=== PATIENT | male | born 1970 | race African-American/Black ===

== ENCOUNTER 2017-12-21 16:20 | Inpatient (IN) | payer OTHER ==
[2017-12-21 18:36] VITALS: BMI 25.7
--- NOTE | 2017-12-21 19:36 | HP ---
"CIWA Score - CIWA Score Nausea/Vomitin-Mild Nausea/No Vomiting Muscle Tremors: 7-Severe,w/o Arm Extended Anxiety: 3 Agitation: 3 Paroxysmal Sweats: 3 (Some hand and facial moisture) Orientation: 3-Disoriented Date>2 days Tacttile Disturbances: 0-None Auditory Disturbances: 0-None Visual Disturbances: 0-None Headache: 3-Moderate CIWA-Ar Total Score: 23 Admission ROS BHS - HPI Chief Complaint: Drinking alcohol too heavy and I'm starting to have withdrawal symptoms. Allergies/Adverse Reactions: Allergies Allergy/AdvReac Type Severity Reaction Status Date / Time No Known Allergies Allergy Verified 12/21/17 18:36 History of Present Illness: Alcohol use began at age 16. Nicotine use began at age 17. Denies other drugs. Hx blackouts. Last one about 1-2 days ago. Has only been able to maintain sobriety while incarcerated. States patch makes my heart beat fast but willing to try a low dose. States chronic burning upon urination. Was treated 20 years ago for a STD. (Not sure if syphilis or gonorrhea) Multiple lumps on chest and back. Instructed to f/u with a PCP upon discharge. Search Terms: Ankush Porras, 1970 Search Date: 12/21/2017 07:34:52 PM The Drug Utilization Report below displays all of the controlled substance prescriptions, if any, that your patient has filled in the last twelve months. The information displayed on this report is compiled from pharmacy submissions to the Department, and accurately reflects the information as submitted by the pharmacies. This report was requested by: Gris Farnsworth | Reference #: [id number] There are no results for the search terms that you entered. Exam Limitations: No Limitations - Ebola screening Have you traveled outside of the country in the last 21 days: No (N) Have you had contact with anyone from an Ebola affected area: No Have you been sick,other than usual withdrawal symptoms: No Do you have a fever: No - Review of Systems Constitutional: Chills, Diaphoresis, Changes in sleep (Difficulty falling asleep unless drunk) EENT: reports: Dental Problems (Missing teeth. Chews and swallows ok.) Respiratory: reports: No Symptoms reported Cardiac: reports: No Symptoms Reported GI: reports: Diarrhea (watery, light brownish diarrhea x today), Nausea : reports: Burning (w/ urination x years) Integumentary: reports: Lumps (Lump (L) chest(x 1-2 months ago), (L) flank (x 6 months ago), and mid-back (x15-20 years)) Neuro: reports: Headache (heavy - just started), Tremors Endocrine: reports: No Symptoms Reported Hematology: reports: No Symptoms Reported Psychiatric: reports: Agitated, Anxious, other (oriented to month and year) Patient History - Patient Medical History Hx Asthma: No Hx Cardiac Disorders: No Hx Hypertension: No Hx Seizures: No Hx Diabetes: No Hx Gastrointestinal Disorders: No - Patient Surgical History Past Surgical History: No - PPD History Previous Implant?: No Documented Results: Negative w/o proof Implanted On Prior [facility] Admission?: No PPD to be Administered?: Yes - Smoking Cessation Smoking history: Current every day smoker Have you smoked in the past 12 months: Yes Aproximately how many cigarettes per day: 20 Hx Chewing Tobacco Use: Yes Initiated information on smoking cessation: Yes 'Breaking Loose' booklet given: 12/21/17 - Substance & Tx. History Hx Alcohol Use: Yes Hx Substance Use: Yes Substance Use Type: Alcohol Hx Substance Use Treatment: Yes (detox 1 yr ago ([facility])) - Substances Abused Alcohol Route: Oral Frequency: Daily Amount used: 20/20OZ AND 2 PINT Age of first use: 16 Date of Last Use: 12/21/17 Admission Physical Exam BHS - Vital Signs Vital Signs: Vital Signs - 24 hr 12/21/17 18:21 Temperature 98.9 F Pulse Rate 99 H Respiratory 18 Rate Blood Pressure 132/75 - Physical General Appearance: Yes: Moderate Distress, Alcohol on Breath, Tremorous, Sweating, Anxious HEENTM: Yes: EOMI, Hearing grossly Normal, Normocephalic, Normal Voice, NEERU Respiratory: Yes: Chest Non-Tender, Lungs Clear, Normal Breath Sounds, No Respiratory Distress Neck: Yes: No masses,lesions,Nodules, Supple Breast: Yes: Mass present Left breast (Firm, 2 cm circular, non-tender mass@ 5 pm) Cardiology: Yes: Regular Rhythm, S1, S2, Tachycardia (HR: 104) Abdominal: Yes: Non Tender, Soft, Increased Bowel Sounds, Mass (Soft tissue masses (L) and (R) flank approx 2.5 cm x 8 mm. Non-tender. 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, Alert, Motor Strength 5/5, Normal Mood /Affect Integumentary: Yes: Other (Soft tissue masses) Lymphatic: Yes: Within Normal Limits - Diagnostic (1) Alcohol dependence with withdrawal, unspecified Current Visit: Yes Status: Acute Qualifiers: Complication of substance-induced condition: with unspecified complication Qualified Code(s): F10.239 - Alcohol dependence with withdrawal, unspecified (2) Nicotine dependence, uncomplicated Current Visit: Yes Status: Chronic Qualifiers: Nicotine product type: cigarettes Qualified Code(s): F17.210 - Nicotine dependence, cigarettes, uncomplicated (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
[2017-12-21] MEDS ORDERED: IBUPROFEN 400 MG TABLET (FP) PO PRN (20:17)
[2017-12-21] MEDS ORDERED: hydrOXYzine PAMOATE 50 MG CAPSULE (FP) PO PRN (20:17)
[2017-12-21] MEDS ORDERED: chlordiazePOXIDE HCL 25 MG CAPSULE PO ONE (20:17)
[2017-12-21] MEDS ORDERED: ACETAMINOPHEN 325 MG TABLET (FP) PO PRN (20:17)
[2017-12-21] MEDS ORDERED: MENTHOL/PHENOL 1 EACH UD MM PRN (20:17)
[2017-12-21] MEDS ORDERED: P-EPHED 60MG/TRIPROLIDI 2.5MG TABLET PO PRN (20:17)
[2017-12-21] MEDS ORDERED: guaiFENesin/D-METHORPHAN HB 10 ML UNIT-DOSE CUPS PO PRN (20:17)
[2017-12-21] MEDS ORDERED: NICOTINE POLACRILEX 2 MG GUM BC PRN (20:17)
[2017-12-21] MEDS ORDERED: MAGNESIUM CITRATE 300 ML BOTTLE PO PRN (20:17)
[2017-12-21] MEDS ORDERED: MAGNESIUM HYDROX 2400MG/30ML ORAL SUSPENSION 30 ML CUP PO PRN (20:17)
[2017-12-21] MEDS ORDERED: MAG HYDROX/AL HYDROX/SIMETH 30 ML UNIT-DOSE CUP PO PRN (20:17)
[2017-12-21] MEDS ORDERED: LOPERAMIDE HCL 2 MG CAPSULE PO PRN (20:17)
[2017-12-21] MEDS: THIAMINE HCL 100 MG TABLET (FP) PO SCH (22:08)
[2017-12-21] MEDS: chlordiazePOXIDE HCL 25 MG CAPSULE PO SCH (22:08)
[2017-12-21 23:03] LABS: URINE APPEARANCE CLEAR; URINE BILIRUBIN NEGATIVE (<2.0 mg/dL); URINE COLOR YELLOW; URINE GLUCOSE (UA) 3+ (NEGATIVE); URINE KETONE TRACE (NEGATIVE); URINE LEUK ESTERASE NEGATIVE (NEGATIVE); URINE NITRITE NEGATIVE (NEGATIVE); URINE PROTEIN NEGATIVE (NEGATIVE)
[2017-12-21 23:08] LABS: URINE MUCUS RARE
[2017-12-22] MEDS: chlordiazePOXIDE HCL 25 MG CAPSULE PO PRN ×2 (00:57→07:24)
[2017-12-22] MEDS: chlordiazePOXIDE HCL 25 MG CAPSULE PO SCH ×4 (06:19→22:17)
[2017-12-22] MEDS: PRENATAL VITAMINS W/ FOLIC ACID TABLET (FP) PO SCH (10:32)
[2017-12-22] MEDS: NICOTINE 14 MG/24 HOURS TOPICAL PATCH TD SCH (10:32)
[2017-12-22 10:51] LABS: HEMATOCRIT 39.2 % (35.4-49); HEMOGLOBIN 12.9 GM/dL (11.7-16.9); MCH 31.4 pg (25.7-33.7); MEAN CELL VOLUME 95.3 fl (80-96); MEAN PLT VOLUME 9.8 fl (7.5-11.1); PLATELET COUNT 163 K/MM3 (134-434); RBC 4.11 M/mm3 (4.00-5.60); RDW 15.1 % (11.9-15.9); WHITE BLOOD COUNT 4.3 K/mm3 (4.0-10.0)
--- NOTE | 2017-12-22 11:00 | EKG ---
Test Reason : Blood Pressure : / mmHG Vent. Rate : 082 BPM Atrial Rate : 082 BPM P-R Int : 140 ms QRS Dur : 076 ms QT Int : 376 ms P-R-T Axes : 072 068 065 degrees QTc Int : 439 ms POOR DATA QUALITY, INTERPRETATION MAY BE ADVERSELY AFFECTED NORMAL SINUS RHYTHM NORMAL ECG Confirmed by MD TORIE, KIMBERLY ([id number]) on 12/22/2017 11:00:15 AM Referred By: Confirmed By:KIMBERLY VOGT MD
[2017-12-22 11:38] LABS: ALBUMIN 3.7 g/dl (3.4-5.0); ALK PHOS 97 U/L (45-117); ANION GAP 13 MMOL/L (8-16); BILIRUBIN,TOTAL 0.8 mg/dL (0.2-1); BLOOD UREA NITROGEN 6 mg/dL (7-18); CHLORIDE 100 mmol/L (98-107); CO2 25 mmol/L (21-32); CREATININE 0.7 mg/dL (0.55-1.3); GLUCOSE,RANDOM 79 mg/dL (74-106); POTASSIUM 3.9 mmol/L (3.5-5.1); SGOT/AST 121 U/L (15-37); SGPT/ALT 36 U/L (13-61); SODIUM 139 mmol/L (136-145); TOT PROT 7.2 g/dl (6.4-8.2)
--- NOTE | 2017-12-22 13:43 | PN ---
S CIWA - CIWA Score Nausea/Vomitin Muscle Tremors: 4-Moderate,w/Arms Extend Anxiety: 4-Mod. Anxious/Guarded Agitation: 4-Moderately Restless Paroxysmal Sweats: 3 Orientation: 0-Oriented Tacttile Disturbances: 0-None Auditory Disturbances: 0-None Visual Disturbances: 0-None Headache: 1-Very Mild CIWA-Ar Total Score: 18 BHS Progress Note (SOAP) Subjective: Tremor, chills, diarrhea, interrupted sleep Objective: 12/22/17 13:38 Last Vital Signs Temp Pulse Resp BP Pulse Ox 98.5 F 72 18 116/78 12/22/17 09:26 12/22/17 09:26 12/22/17 09:26 12/22/17 09:26 Laboratory Tests 12/21/17 12/22/17 12/22/17 21:30 07:00 07:00 WBC 4.3 RBC 4.11 Hgb 12.9 Hct 39.2 MCV 95.3 MCH 31.4 MCHC 33.0 RDW 15.1 Plt Count 163 MPV 9.8 Sodium 139 Potassium 3.9 Chloride 100 Carbon Dioxide 25 Anion Gap 13 BUN 6 L Creatinine 0.7 Creat Clearance w eGFR > 60 Random Glucose 79 Calcium 9.0 Total Bilirubin 0.8 AST 121 H ALT 36 Alkaline Phosphatase 97 Total Protein 7.2 Albumin 3.7 Urine Color Yellow Urine Appearance Clear Urine pH 5.0 Ur Specific [place] 1.020 Urine Protein Negative Urine Glucose (UA) 3+ H Urine Ketones Trace H Urine Blood 1+ H Urine Nitrite Negative Urine Bilirubin Negative Urine Urobilinogen 2.0 Ur Leukocyte Esterase Negative Urine WBC (Auto) 1 Urine RBC (Auto) <1 Urine Mucus Rare RPR Titer 12/22/17 07:00 WBC RBC Hgb Hct MCV MCH MCHC RDW Plt Count MPV Sodium Potassium Chloride Carbon Dioxide Anion Gap BUN Creatinine Creat Clearance w eGFR Random Glucose Calcium Total Bilirubin AST ALT Alkaline Phosphatase Total Protein Albumin Urine Color Urine Appearance Urine pH Ur Specific [place] Urine Protein Urine Glucose (UA) Urine Ketones Urine Blood Urine Nitrite Urine Bilirubin Urine Urobilinogen Ur Leukocyte Esterase Urine WBC (Auto) Urine RBC (Auto) Urine Mucus RPR Titer Nonreactive Labs reviewed: noted with abnormal UA Assessment: 12/22/17 13:41 Withdrawal symptoms Noted with abnormal UA Plan: Continue detox Abnormal UA: encouraged PO water intake, repeat UA
[2017-12-22] MEDS: MELATONIN 5 MG TABLETS PO PRN (22:17)
[2017-12-22] MEDS: THIAMINE HCL 100 MG TABLET (FP) PO SCH (22:17)
[2017-12-23] MEDS: chlordiazePOXIDE HCL 25 MG CAPSULE PO SCH ×3 (06:00→17:40)
[2017-12-23] MEDS: NICOTINE 14 MG/24 HOURS TOPICAL PATCH TD SCH (10:29)
[2017-12-23] MEDS: PRENATAL VITAMINS W/ FOLIC ACID TABLET (FP) PO SCH (10:29)
--- NOTE | 2017-12-23 15:09 | PN ---
S CIWA - CIWA Score Nausea/Vomitin Muscle Tremors: 3 Anxiety: 3 Agitation: 3 Paroxysmal Sweats: 3 Orientation: 0-Oriented Tacttile Disturbances: 0-None Auditory Disturbances: 0-None Visual Disturbances: 0-None Headache: 1-Very Mild CIWA-Ar Total Score: 15 BHS Progress Note (SOAP) Subjective: Tremor, diarrhea, headache, sweating, interrupted sleep Objective: 12/23/17 15:05 Last Vital Signs Temp Pulse Resp BP Pulse Ox 98.4 F 72 18 128/70 12/23/17 14:23 12/23/17 14:23 12/23/17 14:23 12/23/17 14:23 Laboratory Tests 12/21/17 12/22/17 12/22/17 21:30 07:00 07:00 WBC 4.3 RBC 4.11 Hgb 12.9 Hct 39.2 MCV 95.3 MCH 31.4 MCHC 33.0 RDW 15.1 Plt Count 163 MPV 9.8 Sodium 139 Potassium 3.9 Chloride 100 Carbon Dioxide 25 Anion Gap 13 BUN 6 L Creatinine 0.7 Creat Clearance w eGFR > 60 Random Glucose 79 Calcium 9.0 Total Bilirubin 0.8 AST 121 H ALT 36 Alkaline Phosphatase 97 Total Protein 7.2 Albumin 3.7 Urine Color Yellow Urine Appearance Clear Urine pH 5.0 Ur Specific [place] 1.020 Urine Protein Negative Urine Glucose (UA) 3+ H Urine Ketones Trace H Urine Blood 1+ H Urine Nitrite Negative Urine Bilirubin Negative Urine Urobilinogen 2.0 Ur Leukocyte Esterase Negative Urine WBC (Auto) 1 Urine RBC (Auto) <1 Urine Mucus Rare RPR Titer 12/22/17 07:00 WBC RBC Hgb Hct MCV MCH MCHC RDW Plt Count MPV Sodium Potassium Chloride Carbon Dioxide Anion Gap BUN Creatinine Creat Clearance w eGFR Random Glucose Calcium Total Bilirubin AST ALT Alkaline Phosphatase Total Protein Albumin Urine Color Urine Appearance Urine pH Ur Specific [place] Urine Protein Urine Glucose (UA) Urine Ketones Urine Blood Urine Nitrite Urine Bilirubin Urine Urobilinogen Ur Leukocyte Esterase Urine WBC (Auto) Urine RBC (Auto) Urine Mucus RPR Titer Nonreactive Labs reviewed: abnormal UA noted Assessment: 12/23/17 15:06 Withdrawal symptoms Noted with abnormal UA Plan: Continue detox Abnormal UA: encouraged PO water hydration, repeated UA
[2017-12-23] MEDS: MELATONIN 5 MG TABLETS PO PRN (22:23)
[2017-12-23] MEDS: chlordiazePOXIDE 5 MG CAPSULE PO SCH (22:23)
[2017-12-23] MEDS: THIAMINE HCL 100 MG TABLET (FP) PO SCH (22:23)
[2017-12-23] MEDS: chlordiazePOXIDE HCL 25 MG CAPSULE PO PRN (22:24)
[2017-12-23 23:45] LABS: URINE APPEARANCE CLEAR; URINE BILIRUBIN NEGATIVE (<2.0 mg/dL); URINE COLOR LTYELLOW; URINE GLUCOSE (UA) 3+ (NEGATIVE); URINE KETONE NEGATIVE (NEGATIVE); URINE LEUK ESTERASE NEGATIVE (NEGATIVE); URINE NITRITE NEGATIVE (NEGATIVE); URINE PROTEIN NEGATIVE (NEGATIVE); URINE UROBILINOGEN NEGATIVE mg/dL (0.2-1.0)
[2017-12-24] MEDS: chlordiazePOXIDE 5 MG CAPSULE PO SCH ×3 (05:13→17:35)
[2017-12-24] MEDS: PRENATAL VITAMINS W/ FOLIC ACID TABLET (FP) PO SCH (10:30)
[2017-12-24] MEDS: NICOTINE 14 MG/24 HOURS TOPICAL PATCH TD SCH (10:31)
--- NOTE | 2017-12-24 14:05 | PN ---
BHS Progress Note (SOAP) Subjective: Sweating, interrupted sleep Objective: 12/24/17 13:57 Last Vital Signs Temp Pulse Resp BP Pulse Ox 97.0 F L 92 H 20 131/88 12/24/17 13:26 12/24/17 13:26 12/24/17 13:26 12/24/17 13:26 Laboratory Tests 12/21/17 12/22/17 12/22/17 21:30 07:00 07:00 WBC 4.3 RBC 4.11 Hgb 12.9 Hct 39.2 MCV 95.3 MCH 31.4 MCHC 33.0 RDW 15.1 Plt Count 163 MPV 9.8 Sodium 139 Potassium 3.9 Chloride 100 Carbon Dioxide 25 Anion Gap 13 BUN 6 L Creatinine 0.7 Creat Clearance w eGFR > 60 Random Glucose 79 Calcium 9.0 Total Bilirubin 0.8 AST 121 H ALT 36 Alkaline Phosphatase 97 Total Protein 7.2 Albumin 3.7 Urine Color Yellow Urine Appearance Clear Urine pH 5.0 Ur Specific [place] 1.020 Urine Protein Negative Urine Glucose (UA) 3+ H Urine Ketones Trace H Urine Blood 1+ H Urine Nitrite Negative Urine Bilirubin Negative Urine Urobilinogen 2.0 Ur Leukocyte Esterase Negative Urine WBC (Auto) 1 Urine RBC (Auto) <1 Urine Mucus Rare RPR Titer 12/22/17 12/23/17 07:00 15:48 WBC RBC Hgb Hct MCV MCH MCHC RDW Plt Count MPV Sodium Potassium Chloride Carbon Dioxide Anion Gap BUN Creatinine Creat Clearance w eGFR Random Glucose Calcium Total Bilirubin AST ALT Alkaline Phosphatase Total Protein Albumin Urine Color Ltyellow Urine Appearance Clear Urine pH 5.0 Ur Specific [place] 1.017 Urine Protein Negative Urine Glucose (UA) 3+ H Urine Ketones Negative Urine Blood Negative Urine Nitrite Negative Urine Bilirubin Negative Urine Urobilinogen Negative Ur Leukocyte Esterase Negative Urine WBC (Auto) Urine RBC (Auto) Urine Mucus RPR Titer Nonreactive Labs reviewed: repeated UA consistent with glycosuria Assessment: 12/24/17 13:58 Withdrawal symptoms Noted with persistent glycosuria Plan: Continue detox Glycosuria: asymptomatic, encouraged PO water hydration, random finger stick glucose x 1, send fasting serum glucose in AM, send A1c in AM
[2017-12-24] MEDS: chlordiazePOXIDE HCL 10 MG CAPSULE PO SCH (22:26)
[2017-12-24] MEDS: THIAMINE HCL 100 MG TABLET (FP) PO SCH (22:26)
[2017-12-24] MEDS: MELATONIN 5 MG TABLETS PO PRN (22:27)
[2017-12-25] MEDS: chlordiazePOXIDE HCL 10 MG CAPSULE PO SCH (05:30)
[2017-12-25 09:26] VITALS: BP 117/84; PULSE 97; TEMP 97.1
--- NOTE | 2017-12-25 11:21 | DS ---
[facility] Detox Discharge Summary Admission Date: 12/21/17 Discharge Date: 12/25/17 - History Present History: Alcohol Dependence Additional Comments: Patient noted with prediabetes, he has glucose 3+ in his urine x 2 (glycosuria) . Patient instructed to follow up with his PCP within 1 week for further evaluation. Patient refused to wait for fasting serum glucose result and A1c result and got agitated demanding to be discharged without his lab results. Patient stated he consumed lots of glucose. Residence Supervisor educated patient on decreasing starchy and sugary intake. Pertinent Past History: Denies pmhx - Physical Exam Results Vital Signs: Vital Signs Temperature 97.1 F L 12/25/17 09:26 Pulse Rate 97 H 12/25/17 09:26 Respiratory Rate 18 12/25/17 09:26 Blood Pressure 117/84 12/25/17 09:26 O2 Sat by Pulse Oximetry (%) Pertinent Admission Physical Exam Findings: Withdrawal symptoms Laboratory Tests 12/21/17 12/22/17 12/22/17 21:30 07:00 07:00 WBC 4.3 RBC 4.11 Hgb 12.9 Hct 39.2 MCV 95.3 MCH 31.4 MCHC 33.0 RDW 15.1 Plt Count 163 MPV 9.8 Sodium 139 Potassium 3.9 Chloride 100 Carbon Dioxide 25 Anion Gap 13 BUN 6 L Creatinine 0.7 Creat Clearance w eGFR > 60 POC Glucometer Random Glucose 79 Fasting Glucose Hemoglobin A1c % Calcium 9.0 Total Bilirubin 0.8 AST 121 H ALT 36 Alkaline Phosphatase 97 Total Protein 7.2 Albumin 3.7 Urine Color Yellow Urine Appearance Clear Urine pH 5.0 Ur Specific [place] 1.020 Urine Protein Negative Urine Glucose (UA) 3+ H Urine Ketones Trace H Urine Blood 1+ H Urine Nitrite Negative Urine Bilirubin Negative Urine Urobilinogen 2.0 Ur Leukocyte Esterase Negative Urine WBC (Auto) 1 Urine RBC (Auto) <1 Urine Mucus Rare RPR Titer 12/22/17 12/23/17 12/24/17 07:00 15:48 14:20 WBC RBC Hgb Hct MCV MCH MCHC RDW Plt Count MPV Sodium Potassium Chloride Carbon Dioxide Anion Gap BUN Creatinine Creat Clearance w eGFR POC Glucometer 121 Random Glucose Fasting Glucose Hemoglobin A1c % Calcium Total Bilirubin AST ALT Alkaline Phosphatase Total Protein Albumin Urine Color Ltyellow Urine Appearance Clear Urine pH 5.0 Ur Specific [place] 1.017 Urine Protein Negative Urine Glucose (UA) 3+ H Urine Ketones Negative Urine Blood Negative Urine Nitrite Negative Urine Bilirubin Negative Urine Urobilinogen Negative Ur Leukocyte Esterase Negative Urine WBC (Auto) Urine RBC (Auto) Urine Mucus RPR Titer Nonreactive 12/25/17 12/25/17 07:00 07:00 WBC RBC Hgb Hct MCV MCH MCHC RDW Plt Count MPV Sodium Potassium Chloride Carbon Dioxide Anion Gap BUN Creatinine Creat Clearance w eGFR POC Glucometer Random Glucose Fasting Glucose 115 H Hemoglobin A1c % 5.7 Calcium Total Bilirubin AST ALT Alkaline Phosphatase Total Protein Albumin Urine Color Urine Appearance Urine pH Ur Specific [place] Urine Protein Urine Glucose (UA) Urine Ketones Urine Blood Urine Nitrite Urine Bilirubin Urine Urobilinogen Ur Leukocyte Esterase Urine WBC (Auto) Urine RBC (Auto) Urine Mucus RPR Titer Labs reviewed: fasting glucose 115mg, A1c 5.7% - Treatment Hospital Course: Detox Protocol Followed, Detoxed Safely, Responded well, Discharged Condition Good - Medication Discharge Medications: Ambulatory Orders NK [No Known Home Medication] 12/21/17 - Diagnosis (1) Abnormal finding on urinalysis Status: Acute (2) Alcohol dependence with withdrawal, unspecified Status: Acute Qualifiers: Complication of substance-induced condition: with unspecified complication Qualified Code(s): F10.239 - Alcohol dependence with withdrawal, unspecified (3) Nicotine dependence, uncomplicated Status: Chronic Qualifiers: Nicotine product type: cigarettes Qualified Code(s): F17.210 - Nicotine dependence, cigarettes, uncomplicated (4) Glycosuria with normal serum glucose Status: Acute (5) Prediabetes Status: Acute - AMA Did Patient Leave Against Medical Advice: No (F/U with your PCP within 1 week)
== END 2017-12-25 09:26 | disposition home or self-care (01) | DRG 775 ==
LOC: YASAS 16:20 → Y3N 18:42
PROC: HZ2ZZZZ Detoxification Services for Substance Abuse Treatment (ICD-10-PCS; principal; 2017-12-21)
DX: F10.230 Alcohol dependence with withdrawal, uncomplicated (principal); F17.210 Nicotine dependence, cigarettes, uncomplicated; R73.03 Prediabetes; R81 Glycosuria; N63.0 Unspecified lump in unspecified breast; D17.1 Benign lipomatous neoplasm of skin and subcutaneous tissue of trunk; R00.0 Tachycardia, unspecified
CPT/HCPCS: 36415; 80053; 81003; 81015; 82947; 82962; 83036; 85027; 86593; 93005; 93010